=== PATIENT | male | born 1935 | race Caucasian/White ===

== ENCOUNTER → 2017-12-11 | Outpatient (CLI) | payer OTHER ==
[~2017-12-11] MED LIST: ALBU8.5H5 INH; ASCO100019 PO; ASPI-496 PO; BUDE10.2 INH; CARV10CP PO; FINA5TAB4 PO; LISI-167 PO; MULT-224 PO; OMEP-110 PO; OXYC-302 PO; Oxygen INH; TAMS0.4C2 PO; TERA10CA3 PO; TIOT18CA INH
== END ==
LOC: RAD 13:35 → EDSTATUS 14:00
PROVIDERS: ATTEND Internal Medicine Cardiovascular Disease
DX: I35.8 Other nonrheumatic aortic valve disorders (principal)
CPT/HCPCS: 93306

== ENCOUNTER → 2018-07-22 | Outpatient (CLI) | payer OTHER ==
[~2018-07-22] MED LIST changes: +REGADENOSON 0.4 MG/5 ML SYRINGE ONE
== END | disposition home or self-care (01) ==
LOC: CFH 08:01
PROVIDERS: ATTEND Internal Medicine Cardiovascular Disease
DX: R07.89 Other chest pain (principal); I10 Essential (primary) hypertension; I42.9 Cardiomyopathy, unspecified
CPT/HCPCS: 78452; 93017; A9502; J2785

== ENCOUNTER → 2018-08-05 | Outpatient (CLI) | payer OTHER ==
[~2018-08-05] MED LIST changes: -REGADENOSON 0.4 MG/5 ML SYRINGE ONE
== END | disposition home or self-care (01) ==
LOC: CFH 14:08
PROVIDERS: ATTEND Internal Medicine
DX: R91.8 Other nonspecific abnormal finding of lung field (principal)
CPT/HCPCS: 71250

== ENCOUNTER → 2018-08-14 | Outpatient (CLI) | payer OTHER ==
[~2018-08-14] MED LIST changes: +FENTANYL PF 100 MCG/2ML ONE; +FLUMAZENIL 0.1 MG/1 ML, 5ML ONE; +MIDAZOLAM 1 MG/ML, 5ML ONE; +NALOXONE 1 MG/ML, 2ML ONE
== END | disposition home or self-care (01) ==
LOC: RAD 12:16
PROVIDERS: ATTEND Registered Nurse
DX: M50.11 Cervical disc disorder with radiculopathy, high cervical region (principal); M51.16 Intervertebral disc disorders with radiculopathy, lumbar region; M48.061 Spinal stenosis, lumbar region without neurogenic claudication; M48.02 Spinal stenosis, cervical region
CPT/HCPCS: 72141; 72148; 99156; 99157; J2250; J3010; J2310

== ENCOUNTER → 2018-09-12 | Outpatient (CLI) | payer MEDICARE ==
[~2018-09-12] MED LIST changes: +AMLO10TA6 PO; -FENTANYL PF 100 MCG/2ML ONE; -FLUMAZENIL 0.1 MG/1 ML, 5ML ONE; +IRBE1TAB13 PO; -MIDAZOLAM 1 MG/ML, 5ML ONE; -NALOXONE 1 MG/ML, 2ML ONE; +PANT20TA3 PO
[2018-09-12 11:55] LABS: BASOPHILS # (AUTO) 0.03 x10^3/uL (0-0.1); BASOPHILS % (AUTO) 0 % (0-1); EOSINOPHILS # (AUTO) 0.24 x10^3/uL (0-0.4); EOSINOPHILS % (AUTO) 2 % (1-7); LYMPHOCYTES # (AUTO) 2.85 x10^3/uL (1-3.4); LYMPHOCYTES % (AUTO) 29 % (22-44); MD NO; MEAN CORPUSCULAR HEMOGLOBIN 30.8 pg (27.5-34.5); MEAN CORPUSCULAR HGB CONC 32.5 g/dL (33.2-36.2); MEAN CORPUSCULAR VOLUME 94.5 fL (81-97); MEAN PLATELET VOLUME 8.6 fL (7.4-10.4); MONOCYTES # (AUTO) 1.15 x10^3/uL (0.2-0.8); MONOCYTES % (AUTO) 12 % (2-9); NEUTROPHILS # (AUTO) 5.66 x10^3/uL (1.8-6.8); NEUTROPHILS % (AUTO) 57 % (42-75); PLATELET COUNT 222 x10^3/uL (130-400); RED BLOOD COUNT 5.13 x10^6/uL (4.38-5.82); RED CELL DISTRIBUTION WIDTH 13.4 % (9.4-14.8)
[2018-09-12 11:57] LABS: MICROSCOPIC NOT IND
[2018-09-12 11:58] LABS: CULTURE INDICATED? NO
[2018-09-12 12:03] LABS: INTERNATIONAL NORMALIZED RATIO 1.02 (0.93-1.1); PROTHROMBIN TIME 10.8 Seconds (9.6-11.5)
[2018-09-12 13:07] LABS: ALANINE AMINOTRANSFERASE 19 U/L (12-78); ALBUMIN 4.1 g/dL (3.4-5.0); ANION GAP 5 mmol/L (5-15); CALCIUM 8.6 mg/dL (8.5-10.1); CHLORIDE 104 mmol/L (98-107); CREATININE 0.89 mg/dL (0.7-1.3)
[2018-09-12 13:09] LABS: ALKALINE PHOSPHATASE 80 U/L (45-117); BILIRUBIN,TOTAL 1.1 mg/dL (0.2-1.0); TOTAL PROTEIN 7.2 g/dL (6.4-8.2)
== END | disposition home or self-care (01) ==
LOC: STAR 10:54
PROVIDERS: ATTEND Neurological Surgery
DX: Z01.818 Encounter for other preprocedural examination (principal); M48.062 Spinal stenosis, lumbar region with neurogenic claudication
CPT/HCPCS: 36415; 80053; 81003; 85025; 85610; 85730

== ENCOUNTER 2018-09-24 08:58 | Observation (INO) | payer MEDICARE, OTHER ==
[~2018-09-24] VITALS: Ht 181.6 cm; Wt 94.8 kg
[~2018-09-24 08:58] MED LIST changes: -AMLO10TA6 PO; +AMLO10TA8 PO; +BACITRACIN 50,000 UNIT ONE; +BUPIVACAINE/PF-EPI 0.5% 1:200K ONE; -MULT-224 PO; +MULT-642 PO; +THROMBIN 5,000 UNIT VIAL TP ONE; +VANCOMYCIN 1,000 MG ONE
[2018-09-24] MEDS ORDERED: MEPERIDINE/PF 25MG/0.5ML IVPush PRN (09:30)
[2018-09-24] MEDS ORDERED: ALBUTEROL/IPRATROPIUM 2.5MG/0.5MG, 3 ML NPPB PRN ×2 (09:30→13:30)
[2018-09-24] MEDS ORDERED: LABETALOL 5MG/ML, 20ML IV PRN (09:30)
[2018-09-24] MEDS ORDERED: PROMETHAZINE 25 MG/ML, 1ML IV PRN ×2 (09:30→13:30)
[2018-09-24] MEDS ORDERED: OXYcodone 5 MG/5 ML ORAL.SOL UDC PO PRN (09:30)
[2018-09-24] MEDS ORDERED: DIPHENHYDRAMINE 50 MG/ML, 1ML IVPush PRN ×2 (09:30→13:30)
[2018-09-24] MEDS ORDERED: METOPROLOL 1 MG/ML, 5ML IV PRN ×2 (09:30→13:30)
[2018-09-24] MEDS ORDERED: PROCHLORPERAZINE 5 MG/ML, 2ML IV PRN (09:30)
[2018-09-24] MEDS ORDERED: HALOPERIDOL 5 MG/ML IV PRN (09:30)
[2018-09-24] MEDS ORDERED: hydrALAzine 20 MG/ML, 1ML IV PRN ×2 (09:30→13:30)
[2018-09-24] MEDS ORDERED: LACTATED RINGERS 1,000 ML IV SCH (09:33)
[2018-09-24] MEDS ORDERED: OXYcodone IR 5MG TABLET PO STA (09:35)
[2018-09-24] MEDS ORDERED: GABAPENTIN 300 MG CAPSULE PO STA (09:35)
[2018-09-24] MEDS ORDERED: ACETAMINOPHEN 500 MG TABLET PO STA (09:35)
[2018-09-24] MEDS ORDERED: FENTANYL PF 250 MCG/5ML ONE (10:10)
[2018-09-24] MEDS ORDERED: methylPREDNISolone SOD SUCC 125 MG/2 ML ONE (11:35)
[2018-09-24] MEDS ORDERED: PROPOFOL 10 MG/ML, 20ML ONE (11:58)
[2018-09-24] MEDS ORDERED: SUCCINYLCHOLINE 20 MG/ML, 10ML ONE (11:58)
[2018-09-24] MEDS ORDERED: ONDANSETRON 2MG/ML, 2ML ONE (11:58)
[2018-09-24] MEDS ORDERED: CEFAZOLIN 1,000 MG ONE (11:58)
[2018-09-24] MEDS ORDERED: FENTANYL PF 100 MCG/2ML ONE ×2 (13:13→13:46)
[2018-09-24] MEDS ORDERED: FENTANYL PF 100 MCG/2ML EPIDPUSH ONE (13:14)
[2018-09-24] MEDS ORDERED: EPHEDRINE 50 MG/ML, 1ML IVPush PRN (13:30)
[2018-09-24] MEDS ORDERED: FENTANYL PF 100 MCG/2ML IV PRN (13:30)
[2018-09-24] MEDS ORDERED: MORPHINE SULFATE 4 MG/ML, 1ML IVPush PRN (13:30)
[2018-09-24] MEDS ORDERED: ONDANSETRON ODT 8 MG PO PRN (13:30)
[2018-09-24] MEDS ORDERED: ONDANSETRON 2MG/ML, 2ML IV PRN (13:30)
[2018-09-24] MEDS ORDERED: MIDAZOLAM 1 MG/ML, 2ML IV PRN (13:30)
[2018-09-24] MEDS ORDERED: PROMETHAZINE 25 MG SUPP PR PRN (13:30)
[2018-09-24] MEDS ORDERED: PROMETHAZINE 12.5 MG SUPP PR PRN (13:30)
[2018-09-24] MEDS ORDERED: EPHEDRINE 50 MG/ML, 1ML IM PRN (13:30)
[2018-09-24] MEDS ORDERED: OXYcodone 5 MG/5 ML ORAL.SOL UDC ONE ×2 (13:46→14:43)
[2018-09-24] MEDS: FENTANYL PF 100 MCG/2ML IV PRN ×2 (13:48→13:58)
[2018-09-24] MEDS: OXYcodone 5 MG/5 ML ORAL.SOL UDC PO PRN ×2 (13:51→14:45)
[2018-09-24] MEDS ORDERED: HYDROcodone/APAP 5/325 TABLET PO PRN (14:00)
[2018-09-24] MEDS ORDERED: SENNA/DOCUSATE TABLET PO PRN (14:00)
[2018-09-24] MEDS ORDERED: HYDROmorphone 2 MG/ML, 1ML IVPush PRN (14:00)
[2018-09-24] MEDS ORDERED: DIPHENHYDRAMINE 25 MG CAPSULE PO PRN (14:00)
[2018-09-24] MEDS ORDERED: PHARMACY MAY ADJ FOR RENAL FX MC PRN (14:00)
[2018-09-24] MEDS ORDERED: ONDANSETRON 2MG/ML, 2ML IVPush PRN (14:00)
[2018-09-24] MEDS ORDERED: TEMPLATE NON-FORMULARY MED. (Albuterol Sulfate** (Albuterol Sulfate Hfa**) 2 PUFF(S)) INH PRN (14:00)
[2018-09-24] MEDS ORDERED: CYCLOBENZAPRINE 10 MG TABLET PO PRN (14:00)
[2018-09-24] MEDS ORDERED: LABETALOL 5MG/ML, 20ML IVPush PRN (14:00)
[2018-09-24] MEDS ORDERED: HYDROmorphone 2 MG/ML, 1ML ONE (14:12)
[2018-09-24] MEDS: HYDROmorphone 2 MG/ML, 1ML IVPush PRN ×4 (14:14→14:49)
[2018-09-24] MEDS ORDERED: CYCLOBENZAPRINE 10 MG TABLET ONE (14:24)
[2018-09-24 17:30] VITALS: BP 122/79
[2018-09-24] MEDS: NS + 20MEQ KCL 1,000 ML IV SCH (17:43)
[2018-09-24] MEDS: TEMPLATE NON-FORMULARY MED. (Budesonide/Formoterol Fumarate (Symbicort 160-4.5 Mcg Inhaler INH SCH (18:15)
[2018-09-24] MEDS: CEFAZOLIN PMX 1GM/50ML 50 ML IVPB SCH (18:28)
[2018-09-24] MEDS ORDERED: ALBUTEROL SULFATE 2.5 MG/3 ML NPPB PRN (18:30)
[2018-09-24] MEDS: SODIUM CHLORIDE FLUSH 10ML SYR IVF SCH (21:00)
[2018-09-24] MEDS ORDERED: OXYGEN INH SCH (21:00)
[2018-09-24 21:08] VITALS: BP 133/79
[2018-09-25 00:22] VITALS: BP 129/63
[2018-09-25] MEDS: CEFAZOLIN PMX 1GM/50ML 50 ML IVPB SCH (03:00)
[2018-09-25] MEDS: NS + 20MEQ KCL 1,000 ML IV SCH (04:09)
[2018-09-25 05:24] VITALS: BP 140/70
[2018-09-25 06:47] VITALS: BP 121/68
[2018-09-25] MEDS: SODIUM CHLORIDE FLUSH 10ML SYR IVF SCH (08:17)
[2018-09-25] MEDS: TEMPLATE NON-FORMULARY MED. (Budesonide/Formoterol Fumarate (Symbicort 160-4.5 Mcg Inhaler INH SCH (08:17)
[2018-09-25] MEDS ORDERED: HYDROCHLOROTHIAZIDE 12.5 MG CAPSULE PO SCH (09:00)
[2018-09-25] MEDS ORDERED: PANTOPRAZOLE 20MG TABLET PO SCH (09:00)
[2018-09-25] MEDS ORDERED: TEMPLATE NON-FORMULARY MED. (Tiotropium Bromide** (Spiriva**) 18 MCG) INH SCH (09:00)
[2018-09-25] MEDS ORDERED: AMLODIPINE 10 MG TAB PO SCH (09:00)
[2018-09-25] MEDS ORDERED: IRBESARTAN 300 MG TABLET PO SCH (09:00)
[2018-09-25] MEDS ORDERED: HYDR-3240 PO (09:44)
[2018-09-25] MEDS ORDERED: TIZA4CAP PO (09:45)
== END 2018-09-25 12:00 | disposition home or self-care (01) ==
LOC: OUT 08:58 → 4NOR 17:34 → OUT 23:38 → DCLOUNGE 09-25 11:40
PROVIDERS: ADMIT Neurological Surgery; ATTEND Neurological Surgery
DX: M48.062 Spinal stenosis, lumbar region with neurogenic claudication (principal); J44.9 Chronic obstructive pulmonary disease, unspecified; Z87.891 Personal history of nicotine dependence
CPT/HCPCS: 63047; 72100; 96365; 96366; 97161; 97165; G0378; J0330; J0690; J1170; J2405; J2704; J2930; J3010; J3480; J7120; J3370

== ENCOUNTER 2019-02-05 09:22 | Outpatient (CLI) | payer MEDICARE ==
[~2019-02-05 09:22] MED LIST changes: -BACITRACIN 50,000 UNIT ONE; -BUPIVACAINE/PF-EPI 0.5% 1:200K ONE; +HYDR-3240 PO; -THROMBIN 5,000 UNIT VIAL TP ONE; +TIZA4CAP PO; -VANCOMYCIN 1,000 MG ONE
== END 2019-02-05 23:59 | disposition home or self-care (01) ==
LOC: CVU 09:22
PROVIDERS: ATTEND Family Medicine
DX: I73.9 Peripheral vascular disease, unspecified (principal); J44.9 Chronic obstructive pulmonary disease, unspecified; I10 Essential (primary) hypertension
CPT/HCPCS: 93922

== ENCOUNTER 2019-04-20 11:21 | Outpatient (CLI) | payer MEDICARE | END 2019-04-20 23:59 | disposition home or self-care (01) | LOC: CFH 11:21 | PROVIDERS: ATTEND Family Medicine | DX: R05 Cough (principal); J84.10 Pulmonary fibrosis, unspecified | CPT/HCPCS: 71046 ==

== ENCOUNTER 2019-06-24 13:02 | Outpatient (CLI) | payer MEDICARE | END 2019-06-24 23:59 | disposition home or self-care (01) | LOC: CFH 13:02 | PROVIDERS: ATTEND Family Medicine | DX: M47.812 Spondylosis without myelopathy or radiculopathy, cervical region (principal); M48.02 Spinal stenosis, cervical region | CPT/HCPCS: 72050 ==

== ENCOUNTER → 2019-08-13 | Outpatient (CLI) | payer MEDICARE | END | disposition home or self-care (01) | LOC: CFH 13:29 | PROVIDERS: ATTEND Internal Medicine Cardiovascular Disease | DX: I08.2 Rheumatic disorders of both aortic and tricuspid valves (principal); I10 Essential (primary) hypertension; J44.9 Chronic obstructive pulmonary disease, unspecified; Z87.891 Personal history of nicotine dependence | CPT/HCPCS: 93306 ==

== ENCOUNTER 2020-09-04 16:49 | Emergency (ER) | payer MEDICARE ==
[~2020-09-04] VITALS: Ht 180.3 cm; Wt 89.0 kg
[~2020-09-04 16:49] MED LIST changes: +AMLO-211 PO; -AMLO10TA8 PO; -PANT20TA3 PO; +PANT20TA4 PO
[2020-09-04] MEDS ORDERED: ALBUTEROL-IPRATROPIUM MDI INH INH ONE (17:30)
[2020-09-04 17:54] LABS: BASOPHILS % (AUTO) 1 % (0-1); EOSINOPHILS % (AUTO) 4 % (1-7); LYMPHOCYTES % (AUTO) 27 % (22-44); MEAN CORPUSCULAR HEMOGLOBIN 30.9 pg (27.5-34.5); MEAN CORPUSCULAR HGB CONC 33.2 g/dL (33.2-36.2); MEAN PLATELET VOLUME 8.4 fL (7.4-10.4); MONOCYTES % (AUTO) 10 % (2-9); NEUTROPHILS % (AUTO) 58 % (42-75); PLATELET COUNT 175 x10^3/uL (130-400); RED BLOOD COUNT 5.28 x10^6/uL (4.38-5.82); RED CELL DISTRIBUTION WIDTH 13.9 % (9.4-14.8)
[2020-09-04 17:56] LABS: MD NO
[2020-09-04 17:57] LABS: ALANINE AMINOTRANSFERASE 22 U/L (12-78); ALBUMIN 3.9 g/dL (3.4-5.0); ANION GAP 3 mmol/L (5-15); CALCIUM 8.6 mg/dL (8.5-10.1); CHLORIDE 103 mmol/L (98-107); CREATININE 1.02 mg/dL (0.7-1.3)
[2020-09-04 18:02] LABS: ALKALINE PHOSPHATASE 82 U/L (45-117); BILIRUBIN,TOTAL 1.1 mg/dL (0.2-1.0); TROPONIN I < 0.015 ng/mL (0.000-0.045)
[2020-09-04 18:28] VITALS: BP 149/74
== END 2020-09-04 19:20 | disposition home or self-care (01) ==
LOC: ED 17:47
DX: J44.1 Chronic obstructive pulmonary disease with (acute) exacerbation (principal); R07.89 Other chest pain; Z20.822 Contact with and (suspected) exposure to COVID-19; I10 Essential (primary) hypertension; Z87.891 Personal history of nicotine dependence; R94.31 Abnormal electrocardiogram [ECG] [EKG]
CPT/HCPCS: 36415; 71045; 80053; 83880; 84145; 84484; 85025; 85379; 87635; 93005; 94640; 99285

== ENCOUNTER → 2020-10-18 | Outpatient (CLI) | payer MEDICARE ==
[~2020-10-18] MED LIST changes: +HYDR-1067 PO; -HYDR-3240 PO; -OXYC-302 PO; +OXYC1TAB14 PO; +REGADENOSON 0.4 MG/5 ML SYRINGE ONE
== END | disposition home or self-care (01) ==
LOC: CFH 12:11
PROVIDERS: ATTEND Registered Nurse
DX: I08.3 Combined rheumatic disorders of mitral, aortic and tricuspid valves (principal); I11.9 Hypertensive heart disease without heart failure; R07.89 Other chest pain
CPT/HCPCS: 78452; 93017; 93306; A9502; J2785

== ENCOUNTER 2020-11-20 15:19 | Observation (INO) | payer MEDICARE ==
[~2020-11-20] VITALS: Ht 180.3 cm; Wt 87.9 kg
[~2020-11-20 15:19] MED LIST changes: -REGADENOSON 0.4 MG/5 ML SYRINGE ONE
--- NOTE | 2020-11-20 15:35 | NUR ---
PT BROUGHT BACK TO ROOM FROM TRIAGE. PT STATES THAT HE WAS FEELING LIGHTHEADED THIS MORNING AND THE AROUND 1430 THIS AFTERNOON HE HAD WEAKNESS IN HIS RUE. PT STATES THAT BOTH SYMPTOMS HAVE NOW RESOLVED. PT DENIES ANY PAIN, SOB, NUMBNESS/TINGLING, OR RECENT TRAUMA.
--- NOTE | 2020-11-20 16:32 | NUR ---
ER AT BEDSIDE
--- NOTE | 2020-11-20 16:53 | NUR ---
WENT OVER PLAN OF CARE FROM ORDER LIST, AGREES TO PLAN OF CARE. 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 AT BEDSIDE. NAD
[2020-11-20] MEDS ORDERED: SODIUM CHLORIDE FLUSH 10ML SYR IVF ONE (17:00)
[2020-11-20 17:01] LABS: BASOPHILS % (AUTO) 1 % (0-1); EOSINOPHILS % (AUTO) 3 % (1-7); LYMPHOCYTES % (AUTO) 33 % (22-44); MD NO; MEAN CORPUSCULAR HEMOGLOBIN 31.6 pg (27.5-34.5); MEAN CORPUSCULAR HGB CONC 33.5 g/dL (33.2-36.2); MONOCYTES % (AUTO) 9 % (2-9); NEUTROPHILS % (AUTO) 55 % (42-75); PLATELET COUNT 171 x10^3/uL (130-400); RED BLOOD COUNT 4.99 x10^6/uL (4.38-5.82); RED CELL DISTRIBUTION WIDTH 13.8 % (9.4-14.8)
[2020-11-20 17:12] LABS: ALBUMIN 4.1 g/dL (3.4-5.0); ANION GAP 4 mmol/L (5-15); CALCIUM 8.5 mg/dL (8.5-10.1); CHLORIDE 104 mmol/L (98-107)
[2020-11-20 17:16] LABS: ALANINE AMINOTRANSFERASE 25 U/L (12-78); ALKALINE PHOSPHATASE 78 U/L (45-117); BILIRUBIN,TOTAL 1.2 mg/dL (0.2-1.0); CREATININE 0.91 mg/dL (0.7-1.3); TOTAL PROTEIN 7.2 g/dL (6.4-8.2)
--- NOTE | 2020-11-20 18:21 | NUR ---
REPORT GIVEN TO RENEE RODRIGUEZ
[2020-11-20 20:04] VITALS: BP 163/81
[2020-11-20] MEDS ORDERED: LABETALOL 5MG/ML, 20ML IV PRN (20:30)
[2020-11-20] MEDS ORDERED: HYDROcodone/APAP 5/325 TABLET PO PRN (20:30)
[2020-11-20] MEDS ORDERED: ACETAMINOPHEN 650 MG/20.3 ML UDC PO PRN (20:30)
[2020-11-20] MEDS ORDERED: ONDANSETRON 2MG/ML, 2ML IVPush PRN (20:30)
[2020-11-20] MEDS ORDERED: TRAZODONE 50MG TABLET PO PRN (20:30)
[2020-11-20] MEDS: ATORVASTATIN 80 MG TABLET PO SCH (22:21)
[2020-11-21 00:03] VITALS: BP 127/68
[2020-11-21 05:28] VITALS: BP 150/73
[2020-11-21 06:37] LABS: CHOL/HDL RATIO 3.4; LDL/HDL RATIO 1.9 (0.5-3.0)
[2020-11-21 08:00] VITALS: BP 137/73
[2020-11-21] MEDS: ENOXAPARIN 40 MG/0.4 ML SQ SCH (08:00)
[2020-11-21] MEDS: FLUTICASONE/VILANTEROL 200-25MCG/INH INH SCH ×2 (08:25)
[2020-11-21] MEDS: TIOTROPIUM BROMIDE 18 MCG/INH INH SCH (08:28)
[2020-11-21] MEDS ORDERED: AMLODIPINE 10 MG TAB PO SCH (09:00)
[2020-11-21] MEDS ORDERED: IRBESARTAN PO SCH (09:00)
[2020-11-21] MEDS ORDERED: [UNRECOGNIZED DRUG - OTHER] PO SCH (09:00)
[2020-11-21] MEDS ORDERED: HYDROCHLOROTHIAZIDE 12.5 MG CAPSULE PO SCH (09:00)
[2020-11-21] MEDS ORDERED: HYDROCHLOROTHIAZIDE PO SCH (09:00)
[2020-11-21] MEDS ORDERED: LOSARTAN 100 MG TAB PO SCH (09:00)
[2020-11-21] MEDS: PANTOPRAZOLE 20MG TABLET PO SCH (09:28)
[2020-11-21] MEDS: LACTOBACILLUS CHEW TABLET PO SCH ×3 (09:28→20:22)
[2020-11-21] MEDS: ASPIRIN 81 MG TABLET CHEW PO/NG SCH (09:29)
[2020-11-21] MEDS ORDERED: ACID1TAB7 PO (10:00)
[2020-11-21] MEDS ORDERED: ATOR-2 PO (10:00)
[2020-11-21] MEDS ORDERED: ASPI-963 PO/NG (10:00)
[2020-11-21] MEDS ORDERED: CARV6.2512 PO (10:00)
[2020-11-21 13:24] VITALS: BP 137/73
[2020-11-21] MEDS: CARVEDILOL 6.25 MG TABLET PO SCH (17:43)
[2020-11-21 17:44] VITALS: BP 137/73
[2020-11-21 19:57] VITALS: BP 131/77
[2020-11-21] MEDS: ATORVASTATIN 80 MG TABLET PO SCH (20:22)
[2020-11-22 00:02] VITALS: BP 151/80
[2020-11-22] MEDS: CARVEDILOL 6.25 MG TABLET PO SCH (06:07)
[2020-11-22 06:55] VITALS: BP 150/83
[2020-11-22] MEDS: FLUTICASONE/VILANTEROL 200-25MCG/INH INH SCH (07:23)
[2020-11-22] MEDS: LACTOBACILLUS CHEW TABLET PO SCH (07:24)
[2020-11-22] MEDS: ENOXAPARIN 40 MG/0.4 ML SQ SCH (07:24)
[2020-11-22] MEDS: PANTOPRAZOLE 20MG TABLET PO SCH (07:25)
[2020-11-22] MEDS: ASPIRIN 81 MG TABLET CHEW PO/NG SCH (07:25)
[2020-11-22] MEDS: TIOTROPIUM BROMIDE 18 MCG/INH INH SCH (10:28)
[2020-11-22 12:10] VITALS: BP 149/81
== END 2020-11-22 13:12 | disposition home or self-care (01) ==
LOC: ED 15:41 → EDIP 18:00 → INTOOBSV 18:00 → 4WST 18:34 → DCLOUNGE 11-22 13:06
PROVIDERS: ADMIT Family Medicine; ATTEND Internal Medicine
DX: G45.9 Transient cerebral ischemic attack, unspecified (principal); G46.0 Middle cerebral artery syndrome; I63.9 Cerebral infarction, unspecified; J44.9 Chronic obstructive pulmonary disease, unspecified; G47.30 Sleep apnea, unspecified; I10 Essential (primary) hypertension; K21.9 Gastro-esophageal reflux disease without esophagitis; N40.0 Benign prostatic hyperplasia without lower urinary tract symptoms; Z87.891 Personal history of nicotine dependence; Z88.0 Allergy status to penicillin; Z79.899 Other long term (current) drug therapy; Z86.73 Personal history of transient ischemic attack (TIA), and cerebral infarction without residual deficits; Z87.19 Personal history of other diseases of the digestive system; Z79.82 Long term (current) use of aspirin
CPT/HCPCS: 36415; 70450; 70551; 80053; 80061; 85025; 85651; 86140; 92523; 93005; 93308; 93321; 93325; 93880; 94640; 96372; 99285; G0378; J1650; 92522-GN

== ENCOUNTER 2020-12-09 09:25 | Outpatient (CLI) | payer MEDICARE ==
[~2020-12-09 09:25] MED LIST changes: +ACID1TAB7 PO; +ASPI-963 PO/NG; +ATOR-2 PO; +CARV6.2512 PO
== END 2020-12-09 23:59 | disposition home or self-care (01) ==
LOC: CVU 09:25
PROVIDERS: ATTEND Registered Nurse
DX: I73.9 Peripheral vascular disease, unspecified (principal)
CPT/HCPCS: 93922